=== PATIENT | male | born 1995 | race Caucasian/White ===

== ENCOUNTER 2016-06-19 20:22 | Emergency (ER) | payer SELFPAY ==
[2016-06-19 20:35] VITALS: TEMP 98.4
--- NOTE | 2016-06-19 21:11 | EDPHY ---
H & P Stated Complaint: L pinky injury Time Seen by Provider: 06/19/16 20:39 HPI/ROS: Chief complaint: Left 5th finger injury History of present illness: 20-year-old male presents to the emergency department for left 5th finger injury. Patient jammed it just prior to arrival. He has noted a deformity to it. He cannot move it. He denies open wounds, paresthesias or abnormal coolness of the finger. No other injuries reported. - Personal History Current Tetanus/Diphtheria Vaccine: No Current Tetanus Diphtheria and Acellular Pertussis (TDAP): No - Medical/Surgical History Hx Asthma: No Hx Chronic Respiratory Disease: No Hx Diabetes: No Hx Cardiac Disease: No Hx Renal Disease: No Hx Cirrhosis: No Hx Alcoholism: No Hx HIV/AIDS: No Hx Splenectomy or Spleen Trauma: No Other PMH: epilepsy, - Social History Smoking Status: Never smoked - Physical Exam Exam: General: Alert, nontoxic Skin: No open wounds to the left 5th finger or the rest of the left hand Musculoskeletal: Obvious deformity at the PIP joint left 5th finger. He cannot move the finger. The rest of the digits, hand and wrist are unremarkable. Vascular: Capillary refill brisk in the left 5th finger. Radial pulses 2+. Neurologic: Light touch sensation intact in left 5th finger. Constitutional: Initial Vital Signs Temperature (C) 36.9 C 06/19/16 20:33 Heart Rate 96 06/19/16 20:33 Respiratory Rate 16 06/19/16 20:33 Blood Pressure 131/76 H 06/19/16 20:33 O2 Sat (%) 98 06/19/16 20:33 O2 Delivery Mode Room Air Allergies/Adverse Reactions: No Known Allergies Allergy (Unverified 06/19/16 20:33) Home Medications: Medication Instructions Recorded Depakote 06/19/16 Medical Decision Making - Diagnostics Imaging: X-ray left 5th finger reveals a PIP joint dislocation Post reduction x-ray reveals normal alignment without signs of fracture Procedures: Procedure: Splint placement. A finger splint was applied. After application of the splint I returned and re- examined the patient. The splint was adequately immobilizing the joint and distal to the splint the patient's circulation and sensation was intact. ED Course/Re-evaluation: Patient seen under the supervision of my secondary supervising physician Dr. Magdy Zarate. Patient presents to the emergency department for a left 5th finger injury. The finger is neurovascularly intact. X-ray confirms a PIP joint dislocation which is reduced. Finger remains neurovascularly intact. Patient is splinted. Home care is discussed. He is referred to a hand doctor for recheck. Return precautions are given. Patient voiced understanding and agreement with plan. Departure - Departure Disposition: Home, Routine, Self-Care Clinical Impression: Finger dislocation Condition: Good Instructions: Finger Dislocation (ED) Additional Instructions: Follow-up with a hand doctor for continued evaluation and care Use ibuprofen 600 mg 3 times a day for the next 2-3 days If symptoms worsen or new symptoms develop return to the emergency department for recheck Referrals: NONE *PRIMARY CARE P,. [Primary Care Provider] - As per Instructions Sascha Martin MD [Medical Doctor] - As per Instructions
--- NOTE | 2016-06-19 21:12 | DX ---
1. Left Hand, Three Views, 20:55 History: Pain post trauma. Findings: There is a dorsolateral dislocation of the fifth PIP joint. No fracture is identified. Inci dentally noted are benign bone islands in the lunate and hamate bones. Impression: Fifth PIP dislocation 2. Left Hand, 3 views, 21:00 History: Post reduction Findings: The fifth PIP joint is normally located. No fracture is identified. The finger is swollen p roximally. Impression: Successful reduction of the PIP joint dislocation.
[2016-06-19 21:39] VITALS: BP 126/82; PULSE 90; RESP 18; O2SAT 96
== END 2016-06-19 21:31 | disposition home or self-care (01) ==
PROC: 0RSXX5Z Reposition Left Finger Phalangeal Joint with External Fixation Device, External Approach (ICD-10-PCS; principal; 2016-06-19)
DX: S63.287A Dislocation of proximal interphalangeal joint of left little finger, initial encounter (principal); W23.1XXA Caught, crushed, jammed, or pinched between stationary objects, initial encounter
CPT/HCPCS: L3925